=== PATIENT | female | born 1980 | race Caucasian/White ===

== ENCOUNTER → 2017-11-26 | Outpatient (CLI) | payer OTHER ==
[~2017-11-26] MED LIST: CYMBALTA 60MG60 MG PO
== END ==
LOC: COL.RAD 13:32
DX: M48.061 Spinal stenosis, lumbar region without neurogenic claudication (principal); M46.86 Other specified inflammatory spondylopathies, lumbar region; M51.16 Intervertebral disc disorders with radiculopathy, lumbar region

== ENCOUNTER 2019-05-23 21:23 | Emergency (ER) | payer OTHER ==
[~2019-05-23] VITALS: Ht 167.6 cm; Wt 77.7 kg
[2019-05-23 21:30] VITALS: TEMP 98.3
[2019-05-24 01:27] VITALS: BP 128/71; PULSE 89
== END 2019-05-24 01:27 | disposition home or self-care (01) ==
LOC: COL.ER 21:23
DX: M54.5 Low back pain (principal); F17.210 Nicotine dependence, cigarettes, uncomplicated; Z98.1 Arthrodesis status
CPT/HCPCS: J1885